=== PATIENT | female | born 1980 | race African-American/Black ===

== ENCOUNTER 2018-08-30 00:35 | Emergency (ER) | payer SELFPAY ==
[~2018-08-30] VITALS: Ht 167.6 cm; Wt 109.0 kg
[2018-08-30 00:40] VITALS: BP 123/78
[2018-08-30 01:26] LABS: CLARITY URINE CLEAR (CLEAR); COLOR URINE YELLOW (YELLOW); KETONES URINE NEGATIVE (NEGATIVE); LEUKOCYTE ESTERASE URINE NEGATIVE (NEGATIVE); NITRITE URINE NEGATIVE (NEGATIVE); OCCULT BLOOD URINE NEGATIVE (NEGATIVE); PH URINE 6.5 (4.5-8.0); PROTEIN URINE 1+ (NEGATIVE); SPECIFIC GRAVITY URINE 1.022 (1.005-1.030); UROBILINOGEN URINE 0.2 E.U./dL (0.2-1.0)
== END 2018-08-30 02:00 | disposition left against medical advice (07) ==
LOC: ER 00:35
DX: Z53.21 Procedure and treatment not carried out due to patient leaving prior to being seen by health care provider (principal)
CPT/HCPCS: 81025

== ENCOUNTER 2018-08-30 22:01 | Emergency (ER) | payer SELFPAY ==
[~2018-08-30] VITALS: Ht 162.6 cm; Wt 86.0 kg
[2018-08-31 02:48] LABS: CLARITY URINE CLEAR (CLEAR); COLOR URINE DARK YELLOW (YELLOW); KETONES URINE 2+ (NEGATIVE); LEUKOCYTE ESTERASE URINE NEGATIVE (NEGATIVE); NITRITE URINE NEGATIVE (NEGATIVE); OCCULT BLOOD URINE NEGATIVE (NEGATIVE); PROTEIN URINE TRACE (NEGATIVE); SPECIFIC GRAVITY URINE 1.023 (1.005-1.030); UROBILINOGEN URINE 0.2 E.U./dL (0.2-1.0)
[2018-08-31] MEDS ORDERED: PRENATAL VIT/FE FUMARATE/FA TABLET PO SCH (03:45)
[2018-08-31] MEDS ORDERED: PRENATAL VIT/FE FUMARATE/FA TABLET PO NR (04:00)
[2018-08-31] MEDS ORDERED: ACETAMINOPHEN 325MG TABLET PO ONE (04:15)
[2018-08-31 09:12] VITALS: BP 136/79
[2018-08-31] MEDS ORDERED: OLANZAPINE 10MG TABLET PO SCH (12:15)
== END 2018-08-31 17:12 | disposition home or self-care (01) ==
LOC: ER 22:01
DX: O26.892 Other specified pregnancy related conditions, second trimester (principal); Z76.0 Encounter for issue of repeat prescription; O99.342 Other mental disorders complicating pregnancy, second trimester; F20.9 Schizophrenia, unspecified; Z3A.24 24 weeks gestation of pregnancy
CPT/HCPCS: 76805; 81025; 99285